=== PATIENT | male | born 1940 | race Caucasian/White ===

== ENCOUNTER 2017-07-17 23:23 | Observation (INO) | payer OTHER ==
[~2017-07-17] VITALS: Ht 175.3 cm; Wt 102.7 kg
[~2017-07-17 23:23] MED LIST: ADVAIR HFA120 INHALA IH; CARDIZEM CD,CA180 MG PO; CHLORTHALIDONE25 MG PO; COMBIVENT RESPIM4 GM IH; DELTASONE20 M1 PO; MUCINEX1200 MG PO; PRADAXA150 MG PO; PRAVASTATIN SOD80 MG PO; PROAIR HFA8.5 GM IH; SYMBICORT60 INHALA1 IH; ZOCOR40 MG PO
[2017-07-17 23:54] LABS: BASOPHIL COUNT 0.1 K/uL (0-0.1); EOSINOPHIL (%) 5.4 % (0-5); EOSINOPHIL COUNT 0.4 K/uL (0-0.3); HEMATOCRIT 47.7 % (38.0-50.0); IMMATURE GRANULOCYTE (%) 0.1 % (0.0-0.7); LYMPHOCYTE (%) 22.7 % (15-42); LYMPHOCYTE COUNT 1.6 K/uL (1.0-2.8); MCH 31.6 PG (29.0-34.0); MCHC 31.4 G/DL (30.0-36.0); MCV 100.6 FL (86-99); MONOCYTE (%) 12.9 % (3-12); MONOCYTE COUNT 0.9 K/uL (0-0.8); NEUTROPHIL (%) 57.9 % (45-76); NEUTROPHIL COUNT 4.1 K/uL (1.8-6.4); PLATELET COUNT 155 K/uL (156-360); RBC DIS.WIDTH-CV 13.3 % (11.8-14.6); RBC DIS.WIDTH-SD 50.4 % (39-53); RED BLOOD COUNT 4.74 M/uL (4.00-5.50)
[2017-07-18 00:15] LABS: TROP-I INTERPRETATION NEGATIVE; TROPONIN-I 0.01 ng/mL (0.0-0.30)
[2017-07-18 00:24] LABS: ALBUMIN 3.7 g/dL (3.2-4.8); CHLORIDE 106 mEq/L (99-109); POTASSIUM 5.4 mEq/L (3.7-5.4); SODIUM 141 mEq/L (136-147)
[2017-07-18 00:26] LABS: GLUCOSE 101 mg/dL (70-99); TOTAL PROTEIN 6.7 g/dL (6.4-8.3)
[2017-07-18 00:28] LABS: TOTAL BILIRUBIN 0.3 mg/dL (0.0-1.0)
[2017-07-18 00:30] LABS: ALKALINE PHOSPHATASE 74 IU/L (3-129); CREATININE 1.6 mg/dL (0.6-1.3); GFR ESTIMATE (CALCULATED) 45 mL/min/ (58.99-99999)
[2017-07-18 00:31] LABS: AST (GOT) 20 IU/L (2-34); UREA NITROGEN (BUN) 24 mg/dL (9-23)
[2017-07-18 00:33] LABS: ALT (GPT) 20 IU/L (3-49)
[2017-07-18 02:29] VITALS: BP 135/74
[2017-07-18 08:41] VITALS: BP 180/86
[2017-07-18 15:19] VITALS: BP 138/81
[2017-07-18 19:45] VITALS: BP 152/72
[2017-07-18 22:52] VITALS: BP 154/62
[2017-07-19 06:49] LABS: HEMATOCRIT 45.6 % (38.0-50.0); HEMOGLOBIN 14.3 G/DL (12.5-16.6); MCHC 31.4 G/DL (30.0-36.0); MCV 98.9 FL (86-99); PLATELET COUNT 172 K/uL (156-360); RBC DIS.WIDTH-CV 13.2 % (11.8-14.6); RBC DIS.WIDTH-SD 48.9 % (39-53); RED BLOOD COUNT 4.61 M/uL (4.00-5.50); WHITE BLOOD COUNT 9.6 K/uL (4.1-10.2)
[2017-07-19 07:14] LABS: CHLORIDE 103 MEQ/L (99-109); CREATININE 1.7 MG/DL (0.6-1.3); GFR ESTIMATE (CALCULATED) 42 mL/min/ (58.99-99999); POTASSIUM 4.9 MEQ/L (3.7-5.4); SODIUM 139 MEQ/L (136-147); UREA NITROGEN (BUN) 35 mg/dL (9-23)
[2017-07-19 07:16] LABS: GLUCOSE 154 mg/dL (70-99)
[2017-07-19 08:19] VITALS: BP 159/72
[2017-07-19] MEDS ORDERED: CEFTIN500 MG PO (11:33)
[2017-07-19] MEDS ORDERED: BENZONATATE100 MG PO (11:36)
[2017-07-19] MEDS ORDERED: PREDNISONE10 MG PO (11:36)
[2017-07-19 12:10] VITALS: BP 142/65
== END 2017-07-19 14:14 | disposition home or self-care (01) ==
LOC: EME 23:23 → EDOF 07-18 01:19 → 5WEST 07-18 01:19 → ENRESERV 07-18 01:21 → 5WEST 07-18 02:25
PROVIDERS: Emergency Medicine; Internal Medicine
DX: J44.0 Chronic obstructive pulmonary disease with (acute) lower respiratory infection (principal); J44.1 Chronic obstructive pulmonary disease with (acute) exacerbation; J20.9 Acute bronchitis, unspecified; J96.01 Acute respiratory failure with hypoxia; I12.9 Hypertensive chronic kidney disease with stage 1 through stage 4 chronic kidney disease, or unspecified chronic kidney disease; N18.9 Chronic kidney disease, unspecified; I25.10 Atherosclerotic heart disease of native coronary artery without angina pectoris; Z87.891 Personal history of nicotine dependence; E78.5 Hyperlipidemia, unspecified; Z86.73 Personal history of transient ischemic attack (TIA), and cerebral infarction without residual deficits; I48.91 Unspecified atrial fibrillation; E87.5 Hyperkalemia; Z98.890 Other specified postprocedural states; I65.22 Occlusion and stenosis of left carotid artery; Z83.3 Family history of diabetes mellitus
CPT/HCPCS: 71046; 80048; 80053; 83880; 84484; 85025; 85027; 87502; 93005; 94640; 94640 76; 94799; 99202; 99281; 99285; G0378; G8978 GP CJ; G8979 GP CI; G8980 CJ; J0456; J0696; J2930

== ENCOUNTER 2017-07-22 14:33 | Inpatient (IN) | payer OTHER ==
[~2017-07-22] VITALS: Ht 175.3 cm; Wt 101.1 kg
[~2017-07-22 14:33] MED LIST changes: +BENZONATATE100 MG PO; +CEFTIN500 MG PO; +PREDNISONE10 MG PO
[2017-07-22 15:18] LABS: BASOPHIL (%) 0.1 % (0-1); EOSINOPHIL (%) 0.7 % (0-5); EOSINOPHIL COUNT 0.1 K/uL (0-0.3); HEMATOCRIT 51.1 % (38.0-50.0); IMMATURE GRANULOCYTE (%) 0.6 % (0.0-0.7); LYMPHOCYTE (%) 16.9 % (15-42); LYMPHOCYTE COUNT 1.7 K/uL (1.0-2.8); MCH 32.1 PG (29.0-34.0); MCHC 31.3 G/DL (30.0-36.0); MCV 102.6 FL (86-99); MONOCYTE (%) 12.5 % (3-12); MONOCYTE COUNT 1.2 K/uL (0-0.8); NEUTROPHIL (%) 69.2 % (45-76); NEUTROPHIL COUNT 6.8 K/uL (1.8-6.4); PLATELET COUNT 143 K/uL (156-360); RBC DIS.WIDTH-CV 13.2 % (11.8-14.6); RBC DIS.WIDTH-SD 50.2 % (39-53); RED BLOOD COUNT 4.98 M/uL (4.00-5.50); WHITE BLOOD COUNT 9.9 K/uL (4.1-10.2)
[2017-07-22 15:25] LABS: ALBUMIN 4.1 g/dL (3.2-4.8); CHLORIDE 103 mEq/L (99-109); POTASSIUM 4.7 mEq/L (3.7-5.4); SODIUM 142 mEq/L (136-147)
[2017-07-22 15:26] LABS: MAGNESIUM 2.4 mg/dL (1.3-2.7)
[2017-07-22 15:28] LABS: GLUCOSE 112 mg/dL (70-99); TOTAL PROTEIN 7.1 g/dL (6.4-8.3)
[2017-07-22 15:31] LABS: ALKALINE PHOSPHATASE 71 IU/L (3-129); CREATININE 1.7 mg/dL (0.6-1.3); GFR ESTIMATE (CALCULATED) 42 mL/min/ (58.99-99999)
[2017-07-22 15:32] LABS: UREA NITROGEN (BUN) 38 mg/dL (9-23)
[2017-07-22 15:33] LABS: AST (GOT) 25 IU/L (2-34)
[2017-07-22 15:37] LABS: TROP-I INTERPRETATION NEGATIVE; TROPONIN-I 0.02 ng/mL (0.0-0.30)
[2017-07-22 16:06] LABS: ALT (GPT) 43 IU/L (3-49); TOTAL BILIRUBIN 0.5 mg/dL (0.0-1.0)
[2017-07-22] MEDS ORDERED: CARDIZEM CD,CA180 MG PO (18:10)
[2017-07-22] MEDS ORDERED: MICRO-K10 ME2 PO (18:11)
[2017-07-22 22:00] VITALS: BP 160/72
[2017-07-23] VITALS (7 sets, daily range): BP systolic 120–160; BP diastolic 67–80
[2017-07-23 00:18] LABS: C DIFF TOXIN POSITIVE (NEGATIVE)
[2017-07-23 06:56] LABS: HEMATOCRIT 48.6 % (38.0-50.0); HEMOGLOBIN 14.8 G/DL (12.5-16.6); MCH 30.7 PG (29.0-34.0); MCHC 30.5 G/DL (30.0-36.0); MCV 100.8 FL (86-99); PLATELET COUNT 145 K/uL (156-360); RBC DIS.WIDTH-SD 48.7 % (39-53); RED BLOOD COUNT 4.82 M/uL (4.00-5.50); WHITE BLOOD COUNT 7.2 K/uL (4.1-10.2)
[2017-07-23 07:13] LABS: CHLORIDE 98 MEQ/L (99-109); CREATININE 1.8 MG/DL (0.6-1.3); GFR ESTIMATE (CALCULATED) 39 mL/min/ (58.99-99999); GLUCOSE 150 mg/dL (70-99); POTASSIUM 4.9 MEQ/L (3.7-5.4); SODIUM 139 MEQ/L (136-147); UREA NITROGEN (BUN) 38 mg/dL (9-23)
[2017-07-24 03:34] VITALS: BP 140/68
[2017-07-24 06:20] LABS: HEMOGLOBIN 13.6 G/DL (12.5-16.6); MCH 31.3 PG (29.0-34.0); MCHC 31.6 G/DL (30.0-36.0); MCV 99.1 FL (86-99); PLATELET COUNT 127 K/uL (156-360); RBC DIS.WIDTH-CV 12.9 % (11.8-14.6); RBC DIS.WIDTH-SD 47.2 % (39-53); RED BLOOD COUNT 4.34 M/uL (4.00-5.50); WHITE BLOOD COUNT 6.2 K/uL (4.1-10.2)
[2017-07-24 07:30] VITALS: BP 125/83
[2017-07-24 07:39] LABS: CHLORIDE 101 MEQ/L (99-109); CREATININE 1.6 MG/DL (0.6-1.3); GFR ESTIMATE (CALCULATED) 45 mL/min/ (58.99-99999); GLUCOSE 151 mg/dL (70-99); POTASSIUM 4.3 MEQ/L (3.7-5.4); SODIUM 141 MEQ/L (136-147); UREA NITROGEN (BUN) 41 mg/dL (9-23)
[2017-07-24] MEDS ORDERED: AZITHROMYCIN500 M1 PO (10:28)
[2017-07-24] MEDS ORDERED: PREDNISONE5 M1 PO (10:40)
[2017-07-24] MEDS ORDERED: METRONIDAZOLE500 MG PO (10:40)
[2017-07-24 11:00] VITALS: BP 133/75
== END 2017-07-24 15:31 | disposition home health service (06) | DRG 190 ==
LOC: EME 14:33 → 5SOUTH 18:09 → EDOF 18:09 → ENRESERV 18:15 → 5SOUTH 22:03 → ENPENDDIS 07-24 13:09 → 5SOUTH 07-24 15:31
PROVIDERS: Emergency Medicine; Hospitalist; Physician Assistant Medical
DX: J44.1 Chronic obstructive pulmonary disease with (acute) exacerbation (principal); J96.21 Acute and chronic respiratory failure with hypoxia; A04.72 Enterocolitis due to Clostridium difficile, not specified as recurrent; R60.0 Localized edema; I25.10 Atherosclerotic heart disease of native coronary artery without angina pectoris; I48.0 Paroxysmal atrial fibrillation; I12.9 Hypertensive chronic kidney disease with stage 1 through stage 4 chronic kidney disease, or unspecified chronic kidney disease; I69.351 Hemiplegia and hemiparesis following cerebral infarction affecting right dominant side; N18.3 Chronic kidney disease, stage 3 (moderate); I65.29 Occlusion and stenosis of unspecified carotid artery; E78.5 Hyperlipidemia, unspecified; E66.01 Morbid (severe) obesity due to excess calories; Z68.32 Body mass index [BMI] 32.0-32.9, adult; H91.90 Unspecified hearing loss, unspecified ear; I25.2 Old myocardial infarction; Z99.81 Dependence on supplemental oxygen; Z87.891 Personal history of nicotine dependence; Z83.3 Family history of diabetes mellitus; Z79.01 Long term (current) use of anticoagulants
CPT/HCPCS: 71045; 80048; 80053; 83735; 83880; 84484; 85025; 85027; 87493; 93005; 93306; 94640; 94640 76; 94799; 99202; 99281; 99285; G0378; J0456; J0692; J0696; J1940; J2930; J7030; J7644; S0030

== ENCOUNTER 2017-08-19 13:00 | Inpatient (IN) | payer OTHER ==
[~2017-08-19] VITALS: Ht 175.3 cm; Wt 107.2 kg
[~2017-08-19 13:00] MED LIST changes: +AZITHROMYCIN500 M1 PO; +CARDIZEM90 MG PO; +METRONIDAZOLE500 MG PO; +MICRO-K10 ME2 PO; +PREDNISONE5 M1 PO
[2017-08-19 14:15] LABS: BASOPHIL (%) 0.4 % (0-1); EOSINOPHIL (%) 5.3 % (0-5); EOSINOPHIL COUNT 0.3 K/uL (0-0.3); HEMATOCRIT 43.6 % (38.0-50.0); IMMATURE GRANULOCYTE (%) 0.2 % (0.0-0.7); LYMPHOCYTE (%) 27.5 % (15-42); LYMPHOCYTE COUNT 1.5 K/uL (1.0-2.8); MCH 31.5 PG (29.0-34.0); MCHC 32.1 G/DL (30.0-36.0); MCV 98.2 FL (86-99); MONOCYTE (%) 16.9 % (3-12); NEUTROPHIL (%) 49.7 % (45-76); NEUTROPHIL COUNT 2.8 K/uL (1.8-6.4); RBC DIS.WIDTH-CV 13.7 % (11.8-14.6); RBC DIS.WIDTH-SD 49.9 % (39-53); RED BLOOD COUNT 4.44 M/uL (4.00-5.50); WHITE BLOOD COUNT 5.6 K/uL (4.1-10.2)
[2017-08-19 14:18] LABS: PLATELET COUNT 187 K/uL (156-360)
[2017-08-19 14:24] LABS: ALBUMIN 3.3 g/dL (3.2-4.8)
[2017-08-19 14:25] LABS: CHLORIDE 100 mEq/L (99-109); POTASSIUM 4.4 mEq/L (3.7-5.4); SODIUM 143 mEq/L (136-147)
[2017-08-19 14:27] LABS: GLUCOSE 96 mg/dL (70-99)
[2017-08-19 14:29] LABS: TOTAL BILIRUBIN 0.4 mg/dL (0.0-1.0)
[2017-08-19 14:30] LABS: ALKALINE PHOSPHATASE 53 IU/L (3-129)
[2017-08-19 14:31] LABS: CREATININE 1.6 mg/dL (0.6-1.3); GFR ESTIMATE (CALCULATED) 45 mL/min/ (58.99-99999)
[2017-08-19 14:32] LABS: AST (GOT) 24 IU/L (2-34); UREA NITROGEN (BUN) 22 mg/dL (9-23)
[2017-08-19 14:34] LABS: ALT (GPT) 30 IU/L (3-49)
[2017-08-19 14:41] LABS: TROP-I INTERPRETATION NEGATIVE; TROPONIN-I < 0.01 ng/mL (0.0-0.30)
[2017-08-19] MEDS ORDERED: SYMBICORT60 INHALAT IH (16:03)
[2017-08-19 18:02] VITALS: BP 123/76
[2017-08-19 19:28] LABS: MAGNESIUM 1.9 mg/dL (1.3-2.7)
[2017-08-20] VITALS (7 sets, daily range): BP systolic 103–140; BP diastolic 63–73
[2017-08-20 05:14] LABS: HEMATOCRIT 39.4 % (38.0-50.0); HEMOGLOBIN 12.8 G/DL (12.5-16.6); MCH 31.8 PG (29.0-34.0); MCHC 32.5 G/DL (30.0-36.0); PLATELET COUNT 175 K/uL (156-360); RBC DIS.WIDTH-SD 50.6 % (39-53); RED BLOOD COUNT 4.02 M/uL (4.00-5.50); WHITE BLOOD COUNT 4.1 K/uL (4.1-10.2)
[2017-08-20 06:04] LABS: ALKALINE PHOSPHATASE 37 IU/L (3-129); ALT (GPT) 26 IU/L (3-49); AST (GOT) 19 IU/L (2-34); CHLORIDE 100 MEQ/L (99-109); CREATININE 1.9 MG/DL (0.6-1.3); GFR ESTIMATE (CALCULATED) 37 mL/min/ (58.99-99999); POTASSIUM 4.4 MEQ/L (3.7-5.4); SODIUM 141 MEQ/L (136-147); TOTAL BILIRUBIN 0.3 MG/DL (0.0-1.0); TOTAL PROTEIN 5.1 G/DL (6.4-8.3); UREA NITROGEN (BUN) 27 mg/dL (9-23)
[2017-08-20 06:10] LABS: GLUCOSE 147 mg/dL (70-99)
[2017-08-21 03:32] VITALS: BP 136/69
[2017-08-21 05:43] LABS: BASOPHIL (%) 0 % (0-1); EOSINOPHIL (%) 0 % (0-5); HEMATOCRIT 37.8 % (38.0-50.0); HEMOGLOBIN 12.3 G/DL (12.5-16.6); IMMATURE GRANULOCYTE (%) 0.6 % (0.0-0.7); LYMPHOCYTE (%) 9.7 % (15-42); LYMPHOCYTE COUNT 0.9 K/uL (1.0-2.8); MCH 31.1 PG (29.0-34.0); MCHC 32.5 G/DL (30.0-36.0); MCV 95.5 FL (86-99); MONOCYTE (%) 6.2 % (3-12); MONOCYTE COUNT 0.6 K/uL (0-0.8); NEUTROPHIL (%) 83.5 % (45-76); NEUTROPHIL COUNT 7.5 K/uL (1.8-6.4); PLATELET COUNT 216 K/uL (156-360); RBC DIS.WIDTH-CV 13.9 % (11.8-14.6); RED BLOOD COUNT 3.96 M/uL (4.00-5.50)
[2017-08-21 08:30] VITALS: BP 139/72
[2017-08-21 09:15] LABS: CHLORIDE 98 MEQ/L (99-109); CREATININE 2.1 MG/DL (0.6-1.3); GFR ESTIMATE (CALCULATED) 33 mL/min/ (58.99-99999); GLUCOSE 128 mg/dL (70-99); POTASSIUM 4.9 MEQ/L (3.7-5.4); SODIUM 138 MEQ/L (136-147); UREA NITROGEN (BUN) 37 mg/dL (9-23)
[2017-08-21 10:24] LABS: DIGOXIN 2.4 ng/mL (0.8-2.0)
[2017-08-21 12:34] VITALS: BP 137/80
[2017-08-21 16:54] VITALS: BP 124/68
[2017-08-21 19:19] VITALS: BP 138/65
[2017-08-21 23:25] VITALS: BP 124/65
[2017-08-22 03:58] VITALS: BP 126/56
[2017-08-22 05:50] LABS: BASOPHIL (%) 0.1 % (0-1); EOSINOPHIL (%) 0 % (0-5); HEMATOCRIT 37.7 % (38.0-50.0); HEMOGLOBIN 12.2 G/DL (12.5-16.6); IMMATURE GRANULOCYTE (%) 1.3 % (0.0-0.7); LYMPHOCYTE (%) 10.6 % (15-42); MCH 31.4 PG (29.0-34.0); MCHC 32.4 G/DL (30.0-36.0); MCV 97.2 FL (86-99); MONOCYTE (%) 10.8 % (3-12); NEUTROPHIL (%) 77.2 % (45-76); NEUTROPHIL COUNT 6.9 K/uL (1.8-6.4); PLATELET COUNT 195 K/uL (156-360); RBC DIS.WIDTH-CV 14.1 % (11.8-14.6); RBC DIS.WIDTH-SD 50.1 % (39-53); RED BLOOD COUNT 3.88 M/uL (4.00-5.50); WHITE BLOOD COUNT 8.9 K/uL (4.1-10.2)
[2017-08-22 06:53] LABS: CHLORIDE 101 MEQ/L (99-109); CREATININE 2.2 MG/DL (0.6-1.3); GFR ESTIMATE (CALCULATED) 31 mL/min/ (58.99-99999); GLUCOSE 117 mg/dL (70-99); POTASSIUM 4.9 MEQ/L (3.7-5.4); SODIUM 144 MEQ/L (136-147); UREA NITROGEN (BUN) 45 mg/dL (9-23)
[2017-08-22 12:08] VITALS: BP 174/80
[2017-08-22 16:15] VITALS: BP 133/77
[2017-08-22 20:00] VITALS: BP 126/61
[2017-08-22 23:59] VITALS: BP 132/60
[2017-08-23] VITALS (10 sets, daily range): BP systolic 116–144; BP diastolic 57–87
[2017-08-23 06:34] LABS: BASOPHIL (%) 0.2 % (0-1); EOSINOPHIL (%) 0 % (0-5); HEMATOCRIT 40.1 % (38.0-50.0); HEMOGLOBIN 12.7 G/DL (12.5-16.6); IMMATURE GRANULOCYTE (%) 1.6 % (0.0-0.7); LYMPHOCYTE (%) 13.3 % (15-42); LYMPHOCYTE COUNT 1.1 K/uL (1.0-2.8); MCH 30.8 PG (29.0-34.0); MCHC 31.7 G/DL (30.0-36.0); MCV 97.1 FL (86-99); MONOCYTE (%) 13.7 % (3-12); MONOCYTE COUNT 1.1 K/uL (0-0.8); NEUTROPHIL (%) 71.2 % (45-76); PLATELET COUNT 196 K/uL (156-360); RBC DIS.WIDTH-CV 13.9 % (11.8-14.6); RBC DIS.WIDTH-SD 50.3 % (39-53); RED BLOOD COUNT 4.13 M/uL (4.00-5.50); WHITE BLOOD COUNT 8.4 K/uL (4.1-10.2)
[2017-08-23 07:58] LABS: CHLORIDE 104 MEQ/L (99-109); CREATININE 1.8 MG/DL (0.6-1.3); GFR ESTIMATE (CALCULATED) 39 mL/min/ (58.99-99999); GLUCOSE 114 mg/dL (70-99); POTASSIUM 4.2 MEQ/L (3.7-5.4); SODIUM 146 MEQ/L (136-147); UREA NITROGEN (BUN) 42 mg/dL (9-23)
[2017-08-24 03:06] VITALS: BP 157/73
[2017-08-24 07:32] LABS: CHLORIDE 103 MEQ/L (99-109); CREATININE 1.7 MG/DL (0.6-1.3); GFR ESTIMATE (CALCULATED) 42 mL/min/ (58.99-99999); GLUCOSE 94 mg/dL (70-99); POTASSIUM 4.1 MEQ/L (3.7-5.4); SODIUM 144 MEQ/L (136-147); UREA NITROGEN (BUN) 41 mg/dL (9-23)
[2017-08-24 08:00] VITALS: BP 140/65
[2017-08-24 11:20] VITALS: BP 135/65
[2017-08-24 15:20] VITALS: BP 138/69
[2017-08-24 19:54] VITALS: BP 139/65
[2017-08-24 23:52] VITALS: BP 141/64
[2017-08-25 04:20] VITALS: BP 139/90
[2017-08-25 05:31] LABS: BASOPHIL (%) 0.4 % (0-1); BASOPHIL COUNT 0.1 K/uL (0-0.1); EOSINOPHIL (%) 0 % (0-5); HEMOGLOBIN 13.6 G/DL (12.5-16.6); LYMPHOCYTE (%) 10.4 % (15-42); LYMPHOCYTE COUNT 1.2 K/uL (1.0-2.8); MCH 30.9 PG (29.0-34.0); MCHC 31.6 G/DL (30.0-36.0); MCV 97.7 FL (86-99); MONOCYTE (%) 2.3 % (3-12); MONOCYTE COUNT 0.3 K/uL (0-0.8); NEUTROPHIL (%) 83.9 % (45-76); NEUTROPHIL COUNT 9.6 K/uL (1.8-6.4); PLATELET COUNT 197 K/uL (156-360); RBC DIS.WIDTH-CV 13.9 % (11.8-14.6); RBC DIS.WIDTH-SD 50.4 % (39-53); WHITE BLOOD COUNT 11.5 K/uL (4.1-10.2)
[2017-08-25 06:47] LABS: CHLORIDE 103 MEQ/L (99-109); CREATININE 1.7 MG/DL (0.6-1.3); GFR ESTIMATE (CALCULATED) 42 mL/min/ (58.99-99999); GLUCOSE 140 mg/dL (70-99); POTASSIUM 4.8 MEQ/L (3.7-5.4); SODIUM 141 MEQ/L (136-147); UREA NITROGEN (BUN) 42 mg/dL (9-23)
[2017-08-25 08:08] VITALS: BP 139/65
[2017-08-25] MEDS ORDERED: CORDARONE200 MG PO (10:06)
[2017-08-25] MEDS ORDERED: COMBIVENT RESPIM4 GM IH (11:21)
[2017-08-25] MEDS ORDERED: SPIRONOLACTONE25 MG PO (11:21)
[2017-08-25] MEDS ORDERED: DIGOXIN125 MCG PO (11:22)
[2017-08-25] MEDS ORDERED: FUROSEMIDE20 MG PO (11:23)
[2017-08-25 11:24] VITALS: BP 141/73
[2017-08-25] MEDS ORDERED: PREDNISONE10 MG PO (11:25)
== END 2017-08-25 14:55 | disposition home health service (06) | DRG 291 ==
LOC: EME 13:00 → 5WEST 16:18 → EDOF 16:18 → ENRESERV 16:19 → 5WEST 17:35 → 4EAST 08-21 10:44 → 5WEST 08-21 10:44 → ENRESERV 08-23 14:13 → 4EAST 08-23 17:00 → CANRESERV 08-23 17:13 → ENRESERV 08-23 17:13 → 4EAST 08-24 10:29 → ENPENDDIS 08-25 → 4EAST 08-25 14:55
PROVIDERS: Emergency Medicine; Hospitalist; Internal Medicine; Internal Medicine Nephrology; Nurse Practitioner Family
DX: I13.0 Hypertensive heart and chronic kidney disease with heart failure and stage 1 through stage 4 chronic kidney disease, or unspecified chronic kidney disease (principal); I50.813 Acute on chronic right heart failure; N17.9 Acute kidney failure, unspecified; J96.21 Acute and chronic respiratory failure with hypoxia; J43.9 Emphysema, unspecified; Z99.81 Dependence on supplemental oxygen; N18.3 Chronic kidney disease, stage 3 (moderate); I27.81 Cor pulmonale (chronic); I48.0 Paroxysmal atrial fibrillation; R60.0 Localized edema; T46.1X5A Adverse effect of calcium-channel blockers, initial encounter; I25.10 Atherosclerotic heart disease of native coronary artery without angina pectoris; I65.29 Occlusion and stenosis of unspecified carotid artery; E78.5 Hyperlipidemia, unspecified; I25.2 Old myocardial infarction; E66.9 Obesity, unspecified; Z68.35 Body mass index [BMI] 35.0-35.9, adult; H91.90 Unspecified hearing loss, unspecified ear; Z79.01 Long term (current) use of anticoagulants; Z86.73 Personal history of transient ischemic attack (TIA), and cerebral infarction without residual deficits; Z87.891 Personal history of nicotine dependence; Z83.3 Family history of diabetes mellitus
CPT/HCPCS: 71046; 71250; 74176; 80048; 80053; 80162; 83735; 83880; 84484; 85025; 85027; 87070; 87205; 93005; 93970; 94640; 94640 76; 94799; 97530 GO; 97530 GP; 99202; 99281; 99285; G0378; G8987 CK; G8988 GO CJ; J1940; J2930; J7512

== ENCOUNTER 2017-12-21 16:41 | Emergency (ER) | payer OTHER ==
[~2017-12-21] VITALS: Ht 175.3 cm; Wt 100.1 kg
[~2017-12-21 16:41] MED LIST changes: +CORDARONE200 MG PO; +DIGOXIN125 MCG PO; +FUROSEMIDE20 MG PO; +SPIRONOLACTONE25 MG PO; +SYMBICORT60 INHALAT IH
[2017-12-21 17:35] LABS: HEMATOCRIT 37.4 % (38.0-50.0); HEMOGLOBIN 11.9 G/DL (12.5-16.6); MCH 31.7 PG (29.0-34.0); MCHC 31.8 G/DL (30.0-36.0); MCV 99.7 FL (86-99); PLATELET COUNT 165 K/uL (156-360); RBC DIS.WIDTH-CV 13.7 % (11.8-14.6); RBC DIS.WIDTH-SD 50.4 % (39-53); RED BLOOD COUNT 3.75 M/uL (4.00-5.50)
[2017-12-21 17:43] LABS: CHLORIDE 102 mEq/L (99-109); SODIUM 137 mEq/L (136-147)
[2017-12-21 17:45] LABS: GLUCOSE 103 mg/dL (70-99)
[2017-12-21 17:46] LABS: APPEARANCE CLEAR ((CLEAR)); BILIRUBIN NEGATIVE; BLOOD LARGE; COLOR YELLOW ((YELLOW)); GLUCOSE (STRIP) NEGATIVE; KETONES NEGATIVE; LEUKOCYTES NEGATIVE; NITRITE NEGATIVE; PROTEIN (STRIP) NEGATIVE; UROBILINOGEN 0.2 MG/DL (0.2-1.0)
[2017-12-21 17:48] LABS: CREATININE 1.7 mg/dL (0.6-1.3); GFR ESTIMATE (CALCULATED) 42 mL/min/ (58.99-99999)
[2017-12-21 17:49] LABS: UREA NITROGEN (BUN) 21 mg/dL (9-23)
[2017-12-21 17:51] LABS: BACTERIA NONE SEEN /HPF; EPITHELIAL CELLS NONE SEEN /HPF; HYALINE CASTS 20-30 /LPF; MUCUS TRACE /LPF; RED BLOOD CELLS TNTC /HPF (0-5); UCUL ADDED? YES; WHITE BLOOD CELLS 0-5 /HPF (0-5)
[2017-12-21 18:53] VITALS: BP 158/87
== END 2017-12-21 18:53 | disposition home or self-care (01) ==
LOC: EME 16:41
PROVIDERS: Emergency Medicine
DX: R33.9 Retention of urine, unspecified (principal); R31.9 Hematuria, unspecified; I10 Essential (primary) hypertension; E78.5 Hyperlipidemia, unspecified; I25.2 Old myocardial infarction; J45.909 Unspecified asthma, uncomplicated; Z79.51 Long term (current) use of inhaled steroids; Z86.79 Personal history of other diseases of the circulatory system; Z87.891 Personal history of nicotine dependence; Z86.73 Personal history of transient ischemic attack (TIA), and cerebral infarction without residual deficits
CPT/HCPCS: 80048; 81003; 85027; 87086 GA; 99281; 99285

== ENCOUNTER 2018-01-06 14:55 | Emergency (ER) | payer OTHER ==
[~2018-01-06] VITALS: Ht 177.8 cm; Wt 101.4 kg
[2018-01-06 16:09] LABS: BASOPHIL (%) 0.9 % (0-1); BASOPHIL COUNT 0.1 K/uL (0-0.1); EOSINOPHIL (%) 4.8 % (0-5); EOSINOPHIL COUNT 0.3 K/uL (0-0.3); HEMOGLOBIN 13.2 G/DL (12.5-16.6); IMMATURE GRANULOCYTE (%) 0.2 % (0.0-0.7); LYMPHOCYTE (%) 21.8 % (15-42); LYMPHOCYTE COUNT 1.3 K/uL (1.0-2.8); MCH 31.7 PG (29.0-34.0); MCHC 31.4 G/DL (30.0-36.0); MONOCYTE (%) 12.3 % (3-12); MONOCYTE COUNT 0.7 K/uL (0-0.8); NEUTROPHIL COUNT 3.5 K/uL (1.8-6.4); PLATELET COUNT 160 K/uL (156-360); RBC DIS.WIDTH-CV 13.6 % (11.8-14.6); RED BLOOD COUNT 4.16 M/uL (4.00-5.50); WHITE BLOOD COUNT 5.9 K/uL (4.1-10.2)
[2018-01-06 16:23] LABS: INTER. NORMALIZED RATIO 1.8
[2018-01-06 16:25] LABS: PTT 81.2 SEC (25-37)
[2018-01-06 17:05] LABS: CHLORIDE 104 mEq/L (99-109); SODIUM 139 mEq/L (136-147)
[2018-01-06 17:06] LABS: GLUCOSE 104 mg/dL (70-99)
[2018-01-06 17:10] LABS: CREATININE 1.5 mg/dL (0.6-1.3); GFR ESTIMATE (CALCULATED) 48 mL/min/ (58.99-99999)
[2018-01-06 17:11] LABS: UREA NITROGEN (BUN) 17 mg/dL (9-23)
[2018-01-06 17:17] LABS: APPEARANCE CLOUDY ((CLEAR)); BILIRUBIN NEGATIVE; BLOOD LARGE; COLOR AMBER ((YELLOW)); GLUCOSE (STRIP) NEGATIVE; KETONES NEGATIVE; LEUKOCYTES TRACE; NITRITE NEGATIVE; PROTEIN (STRIP) 100; UROBILINOGEN 0.2 MG/DL (0.2-1.0)
[2018-01-06 17:30] LABS: RED BLOOD CELLS TNTC /HPF (0-5); UCUL ADDED? YES
[2018-01-06 20:42] VITALS: BP 132/68
== END 2018-01-06 20:44 | disposition home or self-care (01) ==
LOC: EME 14:55
PROVIDERS: Emergency Medicine
DX: R31.9 Hematuria, unspecified (principal); N40.1 Benign prostatic hyperplasia with lower urinary tract symptoms; N32.3 Diverticulum of bladder; N28.1 Cyst of kidney, acquired; I10 Essential (primary) hypertension; E78.5 Hyperlipidemia, unspecified; I25.2 Old myocardial infarction; J45.909 Unspecified asthma, uncomplicated; Z99.81 Dependence on supplemental oxygen; Z87.891 Personal history of nicotine dependence; Z87.448 Personal history of other diseases of urinary system; Z86.79 Personal history of other diseases of the circulatory system; Z86.73 Personal history of transient ischemic attack (TIA), and cerebral infarction without residual deficits
CPT/HCPCS: 74176; 80048; 81003; 85025; 85610; 85730; 87086; 99281; 99284